=== PATIENT | female | born 2005 | race Caucasian/White ===

== ENCOUNTER → 2025-04-21 | Outpatient (CLI) | payer OTHER, SELFPAY ==
--- NOTE | 2025-04-21 17:15 | CT_ITS ---
PROCEDURE: EXTREMITY UPPER WITHOUT CONTRA 04/21/2025 REASON FOR EXAM: FX, RIGHT ELBOW PAIN TECHNIQUE: EXTREMITY UPPER WITHOUT CONTRA Coronal and Sagittal reconstruction series were provided. One or more dose reduction techniques were used (e.g., Automated exposure control, adjustment of the mA and/or kV according to patient size, use of iterative reconstruction technique RADIATION DOSE SUMMARY: DLP: 462 mGycm COMPARISON: None CT/Extremity Upper without Contra IMPRESSION: Acute lateral condyle fracture with moderate displacement of the fractured late ral condylar fragment. No dislocation of the elbow. Moderate joint effusion. Mild soft tissue edema. No radiographic fore ign body. Reading Location: [id number]
== END | disposition home or self-care (01) ==
PROVIDERS: Referring Provider Physician Assistant Surgical; Visit Provider Physician Assistant Surgical
DX: S42.451A Displaced fracture of lateral condyle of right humerus, initial encounter for closed fracture (principal); M25.521 Pain in right elbow; X58.XXXA Exposure to other specified factors, initial encounter
CPT/HCPCS: 73200